=== PATIENT | female | born 1985 | race Caucasian/White ===

== ENCOUNTER 2019-07-31 11:19 | Inpatient (IN) | payer OTHER ==
[~2019-07-31] VITALS: Ht 160 cm; Wt 55.8 kg
[2019-07-31 12:00] VITALS: BP 140/97
--- NOTE | 2019-07-31 13:05 | NUR ---
A 34, admitted to , under the services of LENKA Osorio DO with a diagnosis of ALCOHOL ABUSE. Chief complaint is ALCOHOL ABUSE. Patient arrived via ambulatory from [place]. Monitor applied. Initial assessment completed. Vital signs taken and recorded. LENKA OSORIO DO notified of admission to the unit. Orders received. See assessment for past medical history, medications and allergies. Patient and/or family oriented to unit. [facility] policy reviewed. Clothing/patient valuable form completed. KRANTHI BLACKWOOD
--- NOTE | 2019-07-31 13:33 | NUR ---
PATIENT MEETS [facility]. CIWA=15. PATIENT IS GOING TO FOLLOW UP WITH OUTPATIENT TREATENT FOR HER AFTERCARE PLAN. KRANTHI PATEL B.A. BLACKJACK DEALER
--- NOTE | 2019-07-31 14:29 | NUR ---
MED REC UPDATED. PT DENIES TAKING ANY HOME MEDS.
[2019-07-31 16:00] VITALS: BP 127/88
[2019-07-31 16:33] LABS: BILIRUBIN NEGATIVE (NEGATIVE); BLOOD NEGATIVE (NEGATIVE); CLARITY CLEAR (CLEAR); COLOR YELLOW (YELLOW); GLUCOSE NEGATIVE (NEGATIVE); KETONE NEGATIVE (NEGATIVE); LEUKO ESTERASE NEGATIVE (NEGATIVE); NITRITE NEGATIVE (NEGATIVE); SPECIFIC GRAVITY 1.015 (1.005-1.030); UROBILINOGEN 0.2 E.U./dl (0.2-1.0)
[2019-07-31 16:33] LABS: BASO % 0.6 % (0.0-1.0); EOS # 0.1 10*3/uL (0.0-0.4); EOS % 1.3 % (1.0-4.0); HEMATOCRIT 40.7 % (37.0-47.0); HEMOGLOBIN 13.1 g/dl (12.0-16.0); LYMPH # 2.4 10*3/uL (1.3-4.4); MEAN CELL VOLUME 90.2 fl (81.0-99.0); MEAN CORPUSCULAR HGB CONC 32.2 g/dl (33.0-37.0); MEAN PLATELET VOLUME 10.6 fl (9.6-12.3); MONO # 0.3 10*3/uL (0.1-1.0); MONO % 5.2 % (3.0-9.0); NEUT # 3.6 10*3/uL (2.3-7.9); NEUT % 55.7 % (47.0-73.0); PLATELET COUNT AUTOMATED 278 10*3/uL (130-400); RED BLOOD COUNT 4.51 10*6/uL (4.10-5.10); RED CELL DISTRI WIDTH 13.1 % (0-14.5); WHITE BLOOD COUNT 6.4 10*3/uL (4.8-10.8)
[2019-07-31 16:41] LABS: INTERNATIONAL NORM RATIO 0.9 (2.0-3.5)
[2019-07-31 16:43] LABS: URINE AMPHETAMINES > 1000 (1000ng/ml); URINE BARBITURATES < 200 (200ng/ml); URINE BENZODIAZEPINES < 200 (200ng/ml); URINE CANNABINOIDS (THC) < 50 (50ng/ml); URINE COCAINE < 300 (300ng/ml); URINE METHADONE < 300 (300ng/ml); URINE OPIATES < 300 (300ng/ml)
[2019-07-31 16:44] LABS: URINE PHENCYCLIDINE < 25 (25ng/ml)
[2019-07-31 16:45] LABS: EPITHELIAL CELLS 41-50
[2019-07-31 16:46] LABS: WBC 0-2 wbc/hpf (0-5)
[2019-07-31 16:48] LABS: ALBUMIN 4.4 gm/dl (3.1-4.5); ALKALINE PHOSPHATASE 69 U/L (45-117); BUN 10 mg/dl (7-24); CHLORIDE 106 mmol/L (98-107); CREATININE 0.73 mg/dL (0.55-1.02); POTASSIUM 3.5 mmol/L (3.5-5.1); SGOT/AST 15 IU/L (3-35); SGPT/ALT 30 U/L (12-78); SODIUM 138 mmol/L (136-145)
[2019-07-31 16:49] LABS: ETHYL ALCOHOL < 3.0 mg/dl (<3)
[2019-07-31 20:00] VITALS: BP 119/76
--- NOTE | 2019-07-31 20:00 | NUR ---
Neurological: AAOX3 Respiratory: NONLABORED, ROOM AIR Breath sounds: CLEAR T/O ALL LUNG ALDRICH Cough: NONE NOTED PER ASSESSMENT Cardiovascular: HRR, DENIES CP/PRESSURE, NO EDEMA, PPP Gastrointestinal: NORMOACTIVE X4 QUADS, DENIES N/V/D/C, SOFT, NONTENDER, NONDISTENDED LAST BM 07/31 Genito/Urinary: DENIES DYSURIA Musculoskeketal: AMBULATORY W/ STEADY GAIT, SKIN INTACT PATIENT IS RESTING IN BED. ASSESSMENT IS COMPLETE WITH NO C/O OR S/S OF WITHDRAWL NOTED AT THIS TIME BED IS LOW, LOCKED, AND CALL LIGHT IS WITHIN REACH. FORREST BURNETT A
--- NOTE | 2019-07-31 22:50 | NUR ---
PRN ROBAXIN GIVEN AT THIS TIME FOR C/O MUSCLE ACHES. CALL LIGHT IS WITHIN REACH. WILL MONITOR EFFECT.
[2019-08-01] VITALS: BP 107/76
--- NOTE | 2019-08-01 05:06 | NUR ---
24 HR chart check completed.
--- NOTE | 2019-08-01 05:20 | NUR ---
PATIENT AROUSES EASILY FOR ADMINISTRATION OF AM MEDICATIONS. CALL LIGHT IS WITHIN REACH.
[2019-08-01 12:00] VITALS: BP 96/63
--- NOTE | 2019-08-01 13:57 | NUR ---
PATIENT IS GOING TO FOLLOW WITH [facility] IN [place], [place] FOR OUTPATIENT COUNSELING. PATIENT AGREES AND UNDERSTANDS HER AFTERCARE PLAN. KRANTHI PATEL B.A. [employer]ALL MINING MACHINE HELPER
[2019-08-01 16:00] VITALS: BP 102/72
[2019-08-01 20:00] VITALS: BP 109/65
--- NOTE | 2019-08-01 20:00 | NUR ---
24 HR chart check completed.
--- NOTE | 2019-08-01 21:24 | NUR ---
SLEEPING, AWAKENS EASILY BUT DROWSY. PATIENT DECLINES MEDS STATING "ALL I DO IS SLEEP." EXPLAINED TO PATIENT THE RISK OF ALCOHOLIC DT'S AND IMPORTANCE OF MEDICATION COMPLIANCE. PATIENT AGGREEABLE TO TAKE LIBRIUM TAPER BUT DECLINES PRN MEDS. WILL MONITOR
--- NOTE | 2019-08-01 23:00 | NUR ---
Patient SLEEPING. Responding to scheduled medications with fewer complaints of pain and anxiety.
[2019-08-02] VITALS: BP 126/92; BP 99/60
--- NOTE | 2019-08-02 00:15 | NUR ---
Patient SLEEPING. Responding to scheduled medications with fewer complaints of pain and anxiety.
--- NOTE | 2019-08-02 06:30 | NUR ---
ROUTINE MEDS PROVIDED TO ASSIST WITH WITHDRAWAL S/S
[2019-08-02 08:00] VITALS: BP 112/90
--- NOTE | 2019-08-02 11:23 | NUR ---
ATIVAN HELPED A LITTLE.
--- NOTE | 2019-08-02 11:24 | NUR ---
MEDICATED WITH IV ATIVAN PER ORDER AND REQUEST.
[2019-08-02 12:00] VITALS: BP 115/74
--- NOTE | 2019-08-02 14:18 | NUR ---
MEDICATED WITH PRN VISTARIL PER ORDER AND REQUEST. STRAIGHT LIBRIUM WAS ALSO JUST GIVEN RECENTLY.
--- NOTE | 2019-08-02 15:30 | NUR ---
JONNY AND LIBRIUM HELPED.
--- NOTE | 2019-08-02 19:45 | NUR ---
MEDICATED WITH IV ATIVAN PER ORDER AND REQUEST.
[2019-08-02 20:00] VITALS: BP 124/87
--- NOTE | 2019-08-02 23:21 | NUR ---
MEDICATED WITH VISTARIL FOR C/O ANXIETY & ROBAXIN FOR MUSCLES ACHES.
[2019-08-03] VITALS: BP 126/92
--- NOTE | 2019-08-03 02:00 | NUR ---
RESTING IN BED WITH EYES CLOSED. MEDICATION GIVEN EARLIER APPARENTLY EFFECTIVE.
--- NOTE | 2019-08-03 03:31 | NUR ---
MEDICATED WITH MOTRIN FOR C/O BACK PAIN.
--- NOTE | 2019-08-03 06:00 | NUR ---
VOICES NO C/O AT THIS TIME; MOTRIN APPARENTLY EFFECTIVE.
[2019-08-03 06:22] LABS: BASO % 0.7 % (0.0-1.0); EOS # 0.2 10*3/uL (0.0-0.4); EOS % 3.8 % (1.0-4.0); HEMATOCRIT 41.4 % (37.0-47.0); HEMOGLOBIN 13.6 g/dl (12.0-16.0); LYMPH % 35.3 % (27.0-41.0); MEAN CELL VOLUME 90.2 fl (81.0-99.0); MEAN CORPUSCULAR HGB 29.6 pg (27.0-31.0); MEAN CORPUSCULAR HGB CONC 32.9 g/dl (33.0-37.0); MEAN PLATELET VOLUME 11.1 fl (9.6-12.3); MONO # 0.4 10*3/uL (0.1-1.0); MONO % 7.6 % (3.0-9.0); NEUT % 52.4 % (47.0-73.0); PLATELET COUNT AUTOMATED 251 10*3/uL (130-400); RED BLOOD COUNT 4.59 10*6/uL (4.10-5.10); WHITE BLOOD COUNT 5.8 10*3/uL (4.8-10.8)
[2019-08-03 06:26] LABS: CREATININE 0.66 mg/dL (0.55-1.02)
[2019-08-03 08:00] VITALS: BP 101/76
--- NOTE | 2019-08-03 09:39 | NUR ---
PATIENT DISCHARGED TO HOME.
== END 2019-08-03 09:39 | disposition home or self-care (01) | DRG 775 ==
LOC: 4E 11:19
PROVIDERS: Student in an Organized Health Care Education/Training Program; ADMIT Internal Medicine
DX: F10.230 Alcohol dependence with withdrawal, uncomplicated (principal); E11.9 Type 2 diabetes mellitus without complications; F15.20 Other stimulant dependence, uncomplicated; F17.210 Nicotine dependence, cigarettes, uncomplicated; Z71.6 Tobacco abuse counseling; Z90.710 Acquired absence of both cervix and uterus; Z88.5 Allergy status to narcotic agent; Z88.2 Allergy status to sulfonamides